=== PATIENT | female | born 1980 | race Two or more races ===

== ENCOUNTER 2025-08-27 12:38 | Outpatient (AMB) | payer OTHER, SELFPAY ==
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
[2025-08-27 12:51] VITALS: BP 124/82; PULSE 80; RESP 18; O2SAT 97; BMI 37.7
== END 2025-08-27 13:32 | disposition home or self-care (01) ==
LOC: HO.HMCH 12:39
PROVIDERS: PCP Student in an Organized Health Care Education/Training Program; Visit Provider Student in an Organized Health Care Education/Training Program
DX: E06.3 Autoimmune thyroiditis (principal); Z68.37 Body mass index [BMI] 37.0-37.9, adult; E66.9 Obesity, unspecified; Z76.89 Persons encountering health services in other specified circumstances; K59.09 Other constipation; J45.20 Mild intermittent asthma, uncomplicated; I34.1 Nonrheumatic mitral (valve) prolapse

== ENCOUNTER 2025-09-03 08:18 | Outpatient (REF) | payer OTHER, SELFPAY ==
--- OUTSIDE RECORDS SUMMARY | 2025-09-03 08:34 | XMS_ITS | Encounter Summary ---
Author Organization [employer] [facility] Address [address] [place] [address] [address] [place] [address] Care Team Providers Care Ornamental Brick Installer Name Role Phone Unavailable Primary Care Provider Unavailabl e Encounter Details Date Type Department Care Team (Latest Contact Info) Description 10/29/2019 Abstract [facility] CONVERSIONS Dental, Provider, DDS Social History Tobacco Use Types Packs/Day Years Used Date Smoking Tobacco: Never Assessed Comments Unknown Sex and Gender Information Value Date Recorded Sex Assigned at Female 07/17/2022 10:33 AM EDT Legal Sex Female 10:33 AM EDT Gender Identity Female 07/02/2023 9:16 AM EDT Sexual Orientation Choose not to disclose 2022 9:16 AM EDT documented as of this encounter Plan of Treatment Not on file documented as of this encounter Visit Diagnoses Not on filedocumented in this encounter
--- OUTSIDE RECORDS SUMMARY | 2025-09-03 08:34 | XMS_ITS | Encounter Summary ---
Author Organization [employer] [facility] Address [address] [place] [id number] Care Team Providers Care Clinical Massage Therapist Name Role Phone Unavailable Primary Care Provider Unavailabl e Reason for Visit * Reason Onset Date Comments Med Refill 07/02/2023 Encounter Details Date Type Department Care Team (Late st Contact Info) Description 07/02/2023 Telephone [facility] [address] [place], [place] [id number] Siddhartha Orozco BDElizabeth [address] [place], [place] [id number] Med Refill Social History Tobacco Use Types Packs/Day Years Used Date Smoking Tobacco: Never Smokeless Tobacco: Never Comments Unknown Sex and Gender Information Value Date Recorded Sex Assigned at Female 07/17/2022 10:33 AM EDT Legal Sex Female 10:33 AM EDT Gender Identity Female 07/02/2023 9:16 AM EDT Sexual Orientation Choose not to disclose 2022 9:16 AM EDT documented as of this encounter Miscellaneous Notes * Telephone Encounter - Araceli Landon - 07/02/2023 3:37 PM EDT Patient states that she went to the [facility] and script was not sent DR documented in this encounter Plan of Treatment Not on file documented as of this encounter Visit Diagnoses Not on filedocumented in this encounter
--- OUTSIDE RECORDS SUMMARY | 2025-09-03 08:34 | XMS_ITS | Clinical Summary ---
Author Organization [employer] [facility] Address [address] [place] [address] [address] [place] [address] Care Team Providers Care Supervisor Cytogenetic Laboratory Name Role Phone Unavailable Primary Care Provider Unavailabl e Allergies Active Allergy Reactions Criticality Noted Date Comments Latex 07/02/2023 Medications amoxicillin-cla vulanate (Augmentin) 500-125 MG tablet Take 1 tablet (500 mg) by mouth 3 times daily. 30 tablet 3 Active Additional Information Patient not taking.Reported on 10/16/2023 Social History Tobacco Use Types Packs/Day Years Used Date Smoking Tobacco: Never Smokeless Tobacco: Never Comments Unknown Sex and Gender Information Value Date Recorded Sex Assigned at Female 07/17/2022 10:33 AM EDT Legal Sex Female 10:33 AM EDT Gender Identity Female 07/02/2023 9:16 AM EDT Sexual Orientation Choose not to disclose 2022 9:16 AM EDT Last Filed Vital Signs Vital Sign Reading Time Taken Comments Blood Pressure 102/60 07/07/2024 3:12 PM EDT Pulse 63 07/07/2024 3:12 PM EDT Temperature - - Respiratory Rate - - Oxygen Saturation - - Inhaled Oxygen Concentration - - Weight - - Height - - Body Mass Index - - Plan of Treatment Health Maintenance Due Date Last Done Comments Depression Screening 1981 HIV Screening 1981 SDOH Screening 1981 Disability Screening 1981 Alcohol/Substance Use Screening 1993 Family Planning (PISQ) 1996 HPV Vaccines (1 - 3-dose series) 1996 Hepatitis C Screening 1999 DTaP/Tdap/Td Vaccines (1 - Tdap) 2000 Hepatitis B Vaccines (1 of 3 - 19+ 3-dose series) 2000 Pap Smear 2002 Cervical Cancer Screening 2011 HPV/Cotest 2011 Mammogram 2021 Dental X-Ray: Bitewings 10/17/2024 10/16/19 24, 07/02/2023, 10/29/2019, Additional history exists Dental Oral Exam 01/06/2025 07/07/2024, , 11/12/2019, Additional history exists Dental Prophylaxis 01/06/2025 07/07/2024, 0 10/16/2023, 06/01/2020, Additional history exists COVID-19 Vaccine ( - 2024- season) 2025 Influenza Vaccine (#1) 2025 Tobacco Screening 07/07/2025 07/07/2024 Dental X-Ray: Full Mouth 10/17/2026 10/16/2023, 10/18 Zoster Vaccines (1 of 2) 2031 RSV Patients and Patients Aged 60 years or older (1 - 1-dose 75+ series) 2056 HIB Vaccines Aged Out No longer eligi ble based on patient's age to complete this topic Hepatitis A Vaccines Aged Out No long er eligible based on patient's age to complete this topic IPV Vaccines Aged Out No longer eligi ble based on patient's age to complete this topic Meningococcal B Vaccine Aged Out No l onger eligible based on patient's age to complete this topic Meningococcal Vaccine Aged Out No smita kathy eligible based on patient's age to complete this topic Pneumococcal Vaccine: Pediatrics (0 to 5 Years) and At-Risk Patients (6 to 49) Years Aged Out No longer eligible based on patient's age to complete this topic RSV under 20 months Aged Out No longe r eligible based on patient's age to complete this topic Rotavirus Vaccines Aged Out No longer eligible based on patient's age to complete this topic Procedures Procedure Name Priority Date/Time Associated Diagnosis Comments PROPHYLAXIS - ADULT Routine 07/07/2024 3 :00 PM EDT PERIODIC ORAL EVALUATION - ESTABLISHED PATIENT Routine 07/07/2024 3:00 PM EDT INTRAORAL - COMPLETE SERIES OF RADIOGRAPHIC IMAGES Routine 10/16/2023 11:00 AM EST from Last 3 Months or Most Recently Relevant to Health Maintenance Insurance DENTAL - BCBS OF [facility] - [place] [id number] DENTAL - BCBS OF [facility] - [place] [id number]
[2025-09-03 11:01] LABS: MANUAL DIFF FLAG NO
[2025-09-03 11:28] LABS: Hematocrit 38.4 % (37.0-47.0); Hemoglobin 12.5 g/dl (12.0-16.0); Imm Gran Abs Auto 0.02 X10*3/uL (0.00-0.03); Imm Gran Pct Auto 0.4 % (0.0-0.4); Lymphocytes Absolute Auto 1.4 X10*3/uL (1.2-4.9); Mean Corpuscular HGB Conc 32.6 g/dl (31.0-35.0); Mean Corpuscular Hemoglobin 29.9 pg (27.0-33.0); Mean Corpuscular Volume 91.9 fL (80.0-98.0); NRBC Abs Auto 0.000 X10*3/uL (0.0-0.012); NRBC Pct Auto 0.0 /100WBC (0.0-0.2); Platelet Count 320 X10*3/uL (160-400); Red Blood Count 4.18 X10*6/uL (4.20-5.50); White Blood Count 5.1 X10*3/uL (4.8-10.8)
[2025-09-03 12:22] LABS: Free T4 (Free Thyroxine) 0.94 ng/dL (0.71-1.85)
[2025-09-03 12:35] LABS: Anion Gap 9 (12-20)
[2025-09-03 12:40] LABS: Alanine Aminotransferase 20 U/L (0-31); Albumin Level 4.3 g/dL (3.5-5.0); Alkaline Phosphatase 60 U/L (39-117); Aspartate Amino Transferase 23 U/L (5-31); Blood Urea Nitrogen 8 mg/dL (9-16); Calcium 8.9 mg/dL (8.4-10.2); Carbon Dioxide 24 mmol/L (22-29); Chloride 109 mmol/L (96-108); Cholesterol 226 mg/dL (<200); Estimated Glomerular Filt Rate > 60; HDL Cholesterol 55 mg/dL (>40); Potassium 4.3 mmol/L (3.3-5.1); Sodium 138 mmol/L (135-145); Total Protein 7.1 g/dL (6.5-8.0); Triglycerides 104 mg/dL (<150)
[2025-09-03 13:16] LABS: Reflex LDLD? No
[2025-09-04 18:33] LABS: Thyroglobulin Antibodies <1 IU/mL (< or = 1)
== END 2025-09-03 08:19 | disposition home or self-care (01) ==
LOC: HO.WFDLDS 08:18
PROVIDERS: Visit Provider Student in an Organized Health Care Education/Training Program
DX: Z00.00 Encounter for general adult medical examination without abnormal findings (principal); Z01.84 Encounter for antibody response examination; Z13.1 Encounter for screening for diabetes mellitus; Z13.220 Encounter for screening for lipoid disorders; E06.3 Autoimmune thyroiditis
CPT/HCPCS: 36415; 80053; 80061; 83036; 84439; 84443; 85025; 86376; 86800